=== PATIENT | female | born 1955 | race Caucasian/White ===

== ENCOUNTER → 2023-09-06 15:03 | Outpatient (REF) | payer OTHER, SELFPAY | LOC: HWRAD 15:03 | PROVIDERS: ATTENDING PHYSICIAN Nurse Practitioner Adult Health | DX: M81.0 Age-related osteoporosis without current pathological fracture (principal) | CPT/HCPCS: 77080 ==

== ENCOUNTER → 2023-09-20 14:54 | Outpatient (REF) | payer OTHER, SELFPAY | LOC: WDC 14:54 | PROVIDERS: ATTENDING PHYSICIAN Nurse Practitioner Adult Health; OTHER PHYSICIAN Nurse Practitioner | DX: N64.4 Mastodynia (principal) | CPT/HCPCS: 71046; 76642; 77061; 77065 ==

== ENCOUNTER 2024-10-15 14:32 | Emergency (ER) | payer OTHER, SELFPAY ==
[2024-10-15 14:34] VITALS: BP 153/95
--- NOTE | 2024-10-15 16:01 | ED.MUSCINJ ---
HPI-Injury
General
Chief Complaint: Fall
Source: patient
Exam Limitations: none
Time Seen by Provider: 10/15/24 15:03
Nursing documentation reviewed up to this point in time: agreed with
History of Present Illness-Injury
Initial Injury comments:
69 yo female from home, fell 2 nights ago in her bathroom, striking left ribs on counter. Has had increasing pain since. Is afraid to have BM due to too painful. Trouble taking deep breaths due to pain. Denies hitting head or any other injury. Not
anticoagulated. Denies abdominal pain.
Past History
Past History
ED Past Medical History: GERD, Hypothyroidism, Psychiatric (depresion) and Other (IBS, osteoporosis, anxiety and depression)
ED Past Surgical History: Gynecological
Social History
Tobacco: Former smoker
Alcohol: None
Personal: Single
Living: alone
Employment: Employed (chief librarian music department)
Review of Systems
Review of Systems
Allergies reviewed?: Yes
All Other Systems: ROS reviewed and negative except as documented in HPI and ROS
Constitutional: Denies fever
Respiratory: Denies cough or trouble breathing (It hurts to breathe)
ABD/GI: Reports constipated; Denies abdominal pain, nausea, vomiting or diarrhea
: Denies dysuria, frequency, incontinence or difficulty voiding
Musculoskeletal: Reports other (Left rib pain); Denies neck pain or back pain
Skin: Reports no symptoms
Neurological: Reports no symptoms
Phy Exam
Physical Exam
Physical Exam:
GENERAL: No acute distress. A&Ox3.
CONSTITUTIONAL: Afebrile.
EYES: clear, conjunctivae normal
ENMT: moist mucus membranes
RESPIRATORY: Regular respirations, nonlabored, lungs clear.
CARDIOVASCULAR: Regular rate and rhythm, no murmurs, no rubs.
GI: Soft, nontender, normal BS
MUSCULOSKELETAL: Moves with ease relative to injured ribs. Well perfused.
SKIN: Warm, dry, pink
PSYCH: Normal mood and affect. Well kept, interactive and appropriate
NEUROLOGIC: Awake, alert and oriented. No focal neurological deficits
Injury Course
Orders/Labs/Results
Orders:
Orders
10/15/24 14:37
Ribs, Left 3 View W/PA Chest CR [CR Ribs-left 3 Vw W/pa Chest] Urgent
Comment:
Reason For Exam: fall
10/15/24 16:01
Oxycodone/Acetaminophen [Percocet 5/325] 1 tablet PO NOW STA
MDM/Problems Addressed
Differential Diagnosis Includes:
rib fractures, contusion
MDM/Problems Addressed:
69 yo female from home, fell 2 nights ago in her bathroom, striking left ribs on counter. Has had increasing pain since. Is afraid to have BM due to too painful. Trouble taking deep breaths due to pain. Denies hitting head or any other injury. Not
anticoagulated. Denies abdominal pain.
Afebrile, appears moderately uncomfortable, VSS
Xray left ribs: Initially read by this examiner: Minimally displaced fractures ribs 10, 9, 8. No hemo/pneumothorax
Rib belt applied with much relief and able to move around much better
Pt is very spry 69 yo, lives alone, daughter nearby, after rib belt applied pt OOB ambulated down long hallway, used BR independently, states she is comfortable going home.
Rx for Tramadol sent to her pharmacy.
She states she will see her PCP in 5-7 days
Return instructions reviewed.
Incentive spirometry with instruction provided.
Pt ambulated out with normal gait.
*Critical Care Note
Total Time (30-74mins, 75-104mins- exclusive of procedures): Not Applicable
ED Attending Note
-
Portions of this chart may have been created with voice recognition software.� Occasional wrong word or��sound alike� substitutions may have occurred due to the inherent limitations of voice recognition software.
Discharge Plan
Departure
Patient Disposition: Home (Routine Discharge)
Date of Disposition: 10/15/24
Time of Disposition: 16:23
Patient with high blood pressure during this ER visit?: No
Condition: Good
Discharge Problem:
Fall from slip, trip, or stumble, Multiple fractures of ribs
Instructions: Rib Fracture
Prescriptions:
New
tramadol 50 mg tablet
50 mg PO BID PRN (Reason: Pain) Qty: 20 0RF
No Action
liothyronine 5 MICROGRAM tablet
5 mcg PO DAILY
famotidine 20 MG tablet
20 mg PO DAILY
trazodone 100 MG tablet
100 mg PO HSPRN PRN (Reason: sleep)
levothyroxine 50 MCG tablet
50 mcg PO DAILY
sertraline 50 MG tablet
50 mg PO DAILY
cyclosporine [Restasis] 10 DROPS dropperette
1 drp BOTH EYES DAILY
denosumab [Prolia] 60 MG/ML syringe
60 mg SQ [id number]
ivermectin 45 GM cream
1 applic topical DAILY
Patient Comments:
to areas of acne and rosacea
polyethylene glycol 3350 17 GRAMS powder in packet
17 grams PO TIDPRN PRN (Reason: constipation)
doxycycline hyclate 100 MG capsule
100 mg PO Q12 4 Days Qty: 8 0RF
cefdinir [Omnicef] 300 MG capsule
300 mg PO BID 4 Days Qty: 8 0RF
Activity Restrictions/Additional Instructions:
As we discussed, use the rib belt for support. Use the incentive spirometer, 10 breaths per hour for the next week.
See your doctor in 5-7 days for recheck
Return here immediately for trouble breathing, worsening pain despite medication or feeling worse in any way
Keep a rolled up towel or a small pillow at your side to splint yourself if you feel a cough or sneeze coming on.
Tylenol 1000 mg up to 3 times a day for mild to moderate pain and use the tramadol if needed for worse pain.
I sent a prescription for tramadol to your pharmacy
Interventions
Interventions:
*Risk Screen - Suicide Last Done: 10/15/24 15:51
*General Assessment Last Done: 10/15/24 15:51
*Neglect/Abuse Screening Last Done: 10/15/24 15:51
*ED- Fall Risk Assessment Last Done: 10/15/24 15:51
*ED COVID-19 Vaccine History Last Done: 10/15/24 15:51
*Nursing Disposition Last Done: 10/15/24 16:42
ED-Musculoskeletal Assessment Last Done: 10/15/24 15:51
ED- Neurological Assessment Last Done: 10/15/24 15:51
ED-Skin Assessment Last Done: 10/15/24 15:51
Discharge Date and Time
Discharge Date/Time: 10/15/24 16:54
Print Language: SERBIAN
[2024-10-15] MEDS: PERCOCET 5/325 1 TABLET PO (16:08)
== END 2024-10-15 16:54 | disposition home or self-care (01) ==
LOC: EMR 14:32
PROVIDERS: EMERGENCY PHYSICIAN Emergency Medicine; FAMILY PHYSICIAN Internal Medicine
DX: S22.42XA Multiple fractures of ribs, left side, initial encounter for closed fracture (principal); W01.198A Fall on same level from slipping, tripping and stumbling with subsequent striking against other object, initial encounter; Z87.891 Personal history of nicotine dependence
CPT/HCPCS: 99283; 71101